=== PATIENT | female | born 1975 | race Caucasian/White ===

== ENCOUNTER → 2023-10-29 | Outpatient (CLI) | payer SELFPAY | LOC: RAD 06:55 | DX: N64.4 Mastodynia (principal) ==

== ENCOUNTER → 2023-12-30 | Day surgery (SDC) | payer OTHER | LOC: MSO 08:14 | DX: K92.1 Melena (principal); Z80.0 Family history of malignant neoplasm of digestive organs | CPT/HCPCS: 00811; J2704; J7120 ==